=== PATIENT | male | born 1980 | race Caucasian/White ===

== ENCOUNTER 2024-03-22 13:20 | Emergency (ER) | payer MEDICAID ==
[2024-03-22 14:22] LABS: BASOPHILS ABSOLUTE AUTO 0.07 K/uL (0.00-0.20); BASOPHILS PERCENT AUTO 0.6 % (0.0-1.0); EOSINOPHILS ABSOLUTE AUTO 0.12 K/uL (0.00-0.45); EOSINOPHILS PERCENT AUTO 1.1 % (0.0-6.0); HEMATOCRIT 46.4 % (42.0-52.0); HEMOGLOBIN 16.4 g/dL (14.0-18.0); IMMATURE GRAN ABSOLUTE AUTO 0.03 K/uL (0.00-0.05); IMMATURE GRAN PERCENT AUTO 0.3 % (0.0-0.4); LYMPHOCYTES ABSOLUTE AUTO 2.68 K/uL (1.00-4.80); LYMPHOCYTES PERCENT AUTO 24.3 % (24.0-44.0); MEAN CORPUSCULAR HEMOGLOBIN 31.2 pg (28.0-32.0); MEAN CORPUSCULAR HGB CONC 35.3 g/dL (32.0-36.0); MEAN CORPUSCULAR VOLUME 88.2 fL (83.0-99.0); MEAN PLATELET VOLUME 10.5 fL (9.4-12.4); MONOCYTES PERCENT AUTO 7.2 % (0.0-8.0); NEUTROPHILS ABSOLUTE AUTO 7.35 K/uL (1.80-7.70); NEUTROPHILS PERCENT AUTO 66.5 % (41.0-71.0); PLATELET COUNT,PLT 220 K/uL (150-400); RED BLOOD CELL COUNT 5.26 M/uL (4.52-5.90); WHITE BLOOD CELL COUNT,WBC 11.05 K/uL (3.9-11.3)
[2024-03-22 14:45] LABS: INR 0.97 (0.86-1.11); PTT,PARTIAL THROMBOPLSTIN TIME 32.8 SEC (23.9-30.7)
[2024-03-22 15:02] LABS: ALBUMIN 3.6 g/dL (3.4-5.0); BILIRUBIN TOTAL 0.4 mg/dL (0.2-1.0); CARBON DIOXIDE,CO2 30.2 mmol/L (21.0-32.0); EST CRCL DRUG DOSING (CG) 86.84 mL/min; MAGNESIUM 2.1 mg/dL (1.8-2.4); POTASSIUM,K 4.1 mmol/L (3.5-5.1); PROTEIN TOTAL,TP 7.3 g/dL (6.4-8.2)
[2024-03-22] MEDS: Lisinopril 10 MG Tab PO STA (15:19)
== END 2024-03-22 16:04 | disposition home or self-care (01) ==
LOC: MW.ED 13:20
DX: I10 Essential (primary) hypertension (principal); Z75.8 Other problems related to medical facilities and other health care; Z79.899 Other long term (current) drug therapy
CPT/HCPCS: 36415; 71046; 80053; 83690; 83735; 84484; 85025; 85610; 85730; 93005; 99284; A9270

== ENCOUNTER 2024-03-22 21:54 | Emergency (ER) | payer SELFPAY | END 2024-03-22 23:54 | disposition home or self-care (01) | LOC: MW.ED 21:54 | DX: L55.9 Sunburn, unspecified (principal); I10 Essential (primary) hypertension; Z79.899 Other long term (current) drug therapy; Z75.8 Other problems related to medical facilities and other health care | CPT/HCPCS: 99283 ==

== ENCOUNTER 2024-07-05 14:54 | Emergency (ER) | payer MEDICAID, OTHER ==
[2024-07-05] MEDS: amLODIPine 5 MG Tab PO ONE (15:23)
== END 2024-07-05 15:26 | disposition home or self-care (01) ==
LOC: MW.ED 14:54
DX: I10 Essential (primary) hypertension (principal); Z75.8 Other problems related to medical facilities and other health care
CPT/HCPCS: 99283; A9270

== ENCOUNTER 2024-07-09 12:28 | Emergency (ER) | payer SELFPAY ==
[2024-07-09] MEDS: cloNIDine 0.1 MG Tab PO ONE (13:02)
== END 2024-07-09 13:46 | disposition home or self-care (01) ==
LOC: MW.ED 12:28
DX: I10 Essential (primary) hypertension (principal)
CPT/HCPCS: 99283; A9270

== ENCOUNTER 2024-07-12 23:03 | Emergency (ER) | payer SELFPAY | END 2024-07-13 01:05 | LOC: MW.ED 23:03 | DX: I10 Essential (primary) hypertension (principal) | CPT/HCPCS: 99283 ==

== ENCOUNTER 2024-07-13 10:07 | Emergency (ER) | payer OTHER ==
[2024-07-13 10:47] LABS: BASOPHILS ABSOLUTE AUTO 0.07 K/uL (0.00-0.20); BASOPHILS PERCENT AUTO 0.8 % (0.0-1.0); EOSINOPHILS ABSOLUTE AUTO 0.11 K/uL (0.00-0.45); EOSINOPHILS PERCENT AUTO 1.2 % (0.0-6.0); HEMATOCRIT 45.5 % (42.0-52.0); HEMOGLOBIN 16.2 g/dL (14.0-18.0); IMMATURE GRAN ABSOLUTE AUTO 0.03 K/uL (0.00-0.05); IMMATURE GRAN PERCENT AUTO 0.3 % (0.0-0.4); LYMPHOCYTES ABSOLUTE AUTO 2.36 K/uL (1.00-4.80); LYMPHOCYTES PERCENT AUTO 25.5 % (24.0-44.0); MEAN CORPUSCULAR HGB CONC 35.6 g/dL (32.0-36.0); MEAN CORPUSCULAR VOLUME 87.2 fL (83.0-99.0); MONOCYTES ABSOLUTE AUTO 0.54 K/uL (0.00-0.80); MONOCYTES PERCENT AUTO 5.8 % (0.0-8.0); NEUTROPHILS ABSOLUTE AUTO 6.16 K/uL (1.80-7.70); NEUTROPHILS PERCENT AUTO 66.4 % (41.0-71.0); PLATELET COUNT,PLT 229 K/uL (150-400); RED BLOOD CELL COUNT 5.22 M/uL (4.52-5.90); WHITE BLOOD CELL COUNT,WBC 9.27 K/uL (3.9-11.3)
[2024-07-13 11:10] LABS: A/G RATIO 1.1 (0.9-1.6); ALBUMIN 3.8 g/dL (3.4-5.0); BILIRUBIN TOTAL 0.8 mg/dL (0.2-1.0); CALCIUM 9.2 mg/dL (8.5-10.1); CARBON DIOXIDE,CO2 31.2 mmol/L (21.0-32.0); EST CRCL DRUG DOSING (CG) 85.95 mL/min; POTASSIUM,K 4.7 mmol/L (3.5-5.1); PROTEIN TOTAL,TP 7.2 g/dL (6.4-8.2)
[2024-07-13] MEDS: Hydrochlorothiazide 12.5 MG Cap PO ONE ×2 (11:22→11:23)
== END 2024-07-13 11:25 | disposition home or self-care (01) ==
LOC: MW.ED 10:07
DX: Z02.89 Encounter for other administrative examinations (principal); I10 Essential (primary) hypertension; Z79.899 Other long term (current) drug therapy; Z86.59 Personal history of other mental and behavioral disorders
CPT/HCPCS: 36415; 80053; 85025; 99283; A9270

== ENCOUNTER 2025-09-07 13:51 | Emergency (ER) | payer SELFPAY ==
[2025-09-07] MEDS: Fluorescein 1 MG Ophth Strip EYERT ONE (15:01)
== END 2025-09-07 16:01 | disposition home or self-care (01) ==
LOC: MW.ED 13:51
DX: T15.02XA Foreign body in cornea, left eye, initial encounter (principal)
CPT/HCPCS: 65220; 99283-25; 99284; J3490